=== PATIENT | female | born 1950 | race Caucasian/White ===

== ENCOUNTER 2017-11-16 10:50 | Inpatient (IN) | payer OTHER ==
[~2017-11-16] VITALS: Ht 162.6 cm; Wt 98.5 kg
[2018-01-04] MEDS ORDERED: LOSA50TA3 PO (16:24)
[2018-01-04] MEDS ORDERED: VITA-268 PO (16:24)
[2018-01-04 16:33] LABS: BASOPHILS % (AUTO) 0.5 % (0-1); EOSINOPHILS # (AUTO) 0.1 X10'3 (0-0.9); EOSINOPHILS % (AUTO) 2.1 % (0-6); LYMPHOCYTES # (AUTO) 1.8 X10'3 (1.1-4.8); LYMPHOCYTES % (AUTO) 31.9 % (21-51); MEAN CORPUSCULAR HEMOGLOBIN 30.6 PG (27.0-31.0); MEAN CORPUSCULAR HGB CONC 34.3 % (33.0-36.5); MEAN CORPUSCULAR VOLUME 89.2 FL (78-98); MEAN PLATELET VOLUME 7.2 FL (7.4-10.4); MONOCYTES # (AUTO) 0.4 X10'3 (0-0.9); MONOCYTES % (AUTO) 6.6 % (2-12); NEUTROPHILS # (AUTO) 3.4 X10'3 (1.8-7.7); NEUTROPHILS % (AUTO) 58.9 % (42-75); PRE OP HEMATOCRIT 38.1 % (35.0-45.0); PRE OP HEMOGLOBIN 13.1 g/dL (12.0-16.0); PRE OP PLATELET COUNT 335 X10'3 (140-440); RED BLOOD COUNT 4.27 X10'6 (4.20-5.60); RED CELL DISTRIBUTION WIDTH 13.6 % (11.5-14.5)
[2018-01-04 16:43] LABS: PRE OP INR 0.9 INR; PRE OP PROTIME 9.6 SECONDS (9.0-12.0)
[2018-01-04 16:53] LABS: ALBUMIN 3.8 G/DL (3.4-5.0); ALBUMIN/GLOBULIN RATIO 1.1 (1.1-1.5); ALKALINE PHOSPHATASE 65 IU/L (46-116); BLOOD UREA NITROGEN 16 MG/DL (7-18); BUN/CREATININE RATIO 18.2 (6.6-38.0); CALCIUM 9.9 MG/DL (8.5-10.1); CHLORIDE 106 MMOL/L (99-107); CREATININE 0.88 MG/DL (0.40-0.90); PRE OP ALT 37 U/L (30-65); PRE OP ANION GAP 7 (8-16); PRE OP AST 21 U/L (10-37); PRE OP BILIRUB, TOTAL 0.3 MG/DL (0.0-1.0); PRE OP GLUCOSE 87 MG/DL (70-104); PRE OP POTASSIUM 3.8 MMOL/L (3.4-5.1); PRE OP SODIUM 145 MMOL/L (135-145); TOTAL CARBON DIOXIDE 31.6 MMOL/L (24-32); TOTAL PROTEIN 7.4 G/DL (6.4-8.2); eGFR 64 ML/MIN
[2018-01-08] VITALS (14 sets, daily range): BP systolic 103–165; BP diastolic 55–89
[2018-01-08] MEDS ORDERED: ringers solution, lacted 1,000 ML IV SCH ×2 (05:00→18:02)
[2018-01-08] MEDS ORDERED: tranexamic acid inj. 950 MG in normal saline 100ml IV soln 90.5 ML IV ONE ×2 (05:30→09:30)
[2018-01-08] MEDS ORDERED: VANCOMYCIN INJ 1000 MG in NORMAL SALINE 250ml IV.SOLN IV ONE (05:30)
[2018-01-08] MEDS ORDERED: ceFAZolin inj. 2,000 MG in dextrose 5%-water 100 ML IV ONE (05:30)
[2018-01-08] MEDS ORDERED: scopolamine 1.5mg patch.TD72 TD ONE (05:30)
[2018-01-08] MEDS ORDERED: famotidine 20mg tablet PO ONE (05:30)
[2018-01-08] MEDS ORDERED: acetaminophen 325mg tablet PO PRN (15:35)
[2018-01-08] MEDS ORDERED: acetaminophen 325mg tablet PO ONE (15:40)
[2018-01-08] MEDS ORDERED: ketorolac trometh. 30mg/ml inj. ONE (16:31)
[2018-01-08] MEDS ORDERED: vancomycin 1,000mg inj ONE (16:31)
[2018-01-08] MEDS ORDERED: ROPIVAcaine 0.5% (5mg/ml) 30ml vial ONE ×2 (16:31→16:44)
[2018-01-08] MEDS ORDERED: tetracaine 1% (10mg/ml) pres. free inj. ONE (16:43)
[2018-01-08] MEDS ORDERED: BUPIVAcaine/PF 7.5mg/ml (0.75%) 10ml vial ONE (16:43)
[2018-01-08] MEDS ORDERED: MIDAZolam 5mg/5ml vial ONE (16:47)
[2018-01-08] MEDS ORDERED: propofol inj 20 ML IV ONE ×3 (16:48→17:19)
[2018-01-08] MEDS ORDERED: morphine 4 MG/ML inj SYRINge IV PRN ×2 (18:05)
[2018-01-08] MEDS ORDERED: ondansetron/PF 4mg/2ml inj IV PRN (18:05)
[2018-01-08] MEDS ORDERED: meperidine/PF 25mg/ml syringe IV PRN ×3 (18:05)
[2018-01-08] MEDS ORDERED: proCHLORperazine 10 MG/2 ml inj IV PRN (18:05)
[2018-01-08] MEDS ORDERED: HYDROmorphone 1 mg/ml syringe IV PRN (19:30)
[2018-01-08] MEDS ORDERED: diphenhydrAMINE 25mg capsule PO PRN ×2 (19:30)
[2018-01-08] MEDS ORDERED: oxyCODONE IR 5mg (immed. release) tablet PO PRN ×2 (19:30)
[2018-01-08] MEDS ORDERED: bisacodyl 10mg suppository rectal RC PRN (19:30)
[2018-01-08] MEDS ORDERED: vancomycin/NS 1 GM ADD-VANTAGE 250 ML IV SCH (20:00)
[2018-01-08] MEDS: ondansetron/PF 4mg/2ml inj IV PRN (21:06)
[2018-01-08] MEDS ORDERED: HYDROcodone/acetaminophen 5mg/325mg tablet PO PRN (21:25)
[2018-01-08] MEDS ORDERED: traMADol 50MG tablet PO PRN (21:25)
[2018-01-08] MEDS: gabapentin 300mg capsule PO SCH (21:44)
[2018-01-08] MEDS: sennosides 8.6mg tablet PO SCH (21:45)
[2018-01-08] MEDS: ketorolac tromethamine 15mg/ml inj. IV SCH (21:45)
[2018-01-08] MEDS ORDERED: tranexamic acid inj. 950 MG in normal saline 100ml IV soln 100 ML IV ONE (22:30)
[2018-01-09] MEDS: ceFAZolin 1GM/D5W- ADD-VANTAGE 50 ML IV SCH ×2 (00:15→08:59)
[2018-01-09] MEDS: potassium cl 20mEq in 1/2 NS 1,000 ML IV SCH ×4 (00:15→21:04)
[2018-01-09 00:50] VITALS: BP 100/55
[2018-01-09 02:00] VITALS: BP 102/65
[2018-01-09] MEDS: ketorolac tromethamine 15mg/ml inj. IV SCH ×3 (03:03→16:35)
[2018-01-09] MEDS: ondansetron/PF 4mg/2ml inj IV PRN ×2 (03:03→12:38)
[2018-01-09 05:49] LABS: BASOPHILS % (AUTO) 0.3 % (0-1); EOSINOPHILS # (AUTO) 0.2 X10'3 (0-0.9); EOSINOPHILS % (AUTO) 2.9 % (0-6); HEMATOCRIT 30.3 % (35.0-45.0); HEMOGLOBIN 10.3 g/dl (12.0-16.0); LYMPHOCYTES # (AUTO) 1.5 X10'3 (1.1-4.8); LYMPHOCYTES % (AUTO) 21.3 % (21-51); MEAN CORPUSCULAR HEMOGLOBIN 30.6 PG (27.0-31.0); MEAN PLATELET VOLUME 7.3 FL (7.4-10.4); MONOCYTES # (AUTO) 0.4 X10'3 (0-0.9); MONOCYTES % (AUTO) 5.7 % (2-12); NEUTROPHILS % (AUTO) 69.8 % (42-75); PLATELET COUNT 224 X10'3 (140-440); RED BLOOD COUNT 3.37 X10'6 (4.20-5.60); RED CELL DISTRIBUTION WIDTH 13.3 % (11.5-14.5); WHITE BLOOD COUNT 7.2 X10'3 (4.5-11.0)
[2018-01-09 06:00] VITALS: BP 159/46
[2018-01-09] MEDS ORDERED: vancomycin/NS 1 GM ADD-VANTAGE 250 ML IV ONE (06:00)
[2018-01-09 06:30] LABS: ANION GAP 6 (8-16); CHLORIDE 108 MMOL/L (99-107); POTASSIUM 4.8 MMOL/L (3.5-5.1); SODIUM 141 MMOL/L (135-145); TOTAL CARBON DIOXIDE 27.2 MMOL/L (24-32)
[2018-01-09] MEDS: metoclopramide 5 mg/ml inj IV PRN ×2 (09:05→15:46)
[2018-01-09] MEDS: gabapentin 300mg capsule PO SCH ×3 (09:05→20:35)
[2018-01-09] MEDS: aspirin 325mg tablet PO SCH (09:05)
[2018-01-09] MEDS: losartan 50mg tablet PO SCH (09:06)
[2018-01-09] MEDS: traMADol 50MG tablet PO PRN ×4 (09:06→22:28)
[2018-01-09 10:00] VITALS: BP 123/58
[2018-01-09] MEDS ORDERED: ASPI-1 PO (13:56)
[2018-01-09] MEDS: HYDROmorphone 1 mg/ml syringe IV PRN (15:46)
[2018-01-09] MEDS ORDERED: ceFAZolin 1GM/D5W- ADD-VANTAGE 50 ML IV ONE (17:00)
[2018-01-09 18:00] VITALS: BP 115/49
[2018-01-09] MEDS: sennosides 8.6mg tablet PO SCH (20:35)
[2018-01-09] MEDS: celeCOXIB 100mg capsule PO SCH (20:35)
[2018-01-09 22:00] VITALS: BP 114/62
[2018-01-09] MEDS: cyclobenzaprine 10mg tablet PO PRN (23:23)
[2018-01-10] MEDS: HYDROmorphone 1 mg/ml syringe IV PRN (00:36)
[2018-01-10] MEDS: ondansetron/PF 4mg/2ml inj IV PRN ×2 (00:36→09:56)
[2018-01-10] MEDS: potassium cl 20mEq in 1/2 NS 1,000 ML IV SCH ×2 (03:26→17:24)
[2018-01-10 05:51] LABS: BASOPHILS % (AUTO) 0.1 % (0-1); EOSINOPHILS # (AUTO) 0.2 X10'3 (0-0.9); EOSINOPHILS % (AUTO) 2.9 % (0-6); HEMATOCRIT 27.9 % (35.0-45.0); HEMOGLOBIN 9.5 g/dl (12.0-16.0); LYMPHOCYTES # (AUTO) 1.5 X10'3 (1.1-4.8); LYMPHOCYTES % (AUTO) 25.8 % (21-51); MEAN CORPUSCULAR HEMOGLOBIN 30.8 PG (27.0-31.0); MEAN CORPUSCULAR HGB CONC 34.1 % (33.0-36.5); MEAN CORPUSCULAR VOLUME 90.3 FL (78-98); MEAN PLATELET VOLUME 7.2 FL (7.4-10.4); MONOCYTES # (AUTO) 0.3 X10'3 (0-0.9); MONOCYTES % (AUTO) 5.8 % (2-12); NEUTROPHILS # (AUTO) 3.9 X10'3 (1.8-7.7); NEUTROPHILS % (AUTO) 65.4 % (42-75); PLATELET COUNT 210 X10'3 (140-440); RED BLOOD COUNT 3.09 X10'6 (4.20-5.60); RED CELL DISTRIBUTION WIDTH 13.3 % (11.5-14.5)
[2018-01-10] MEDS: traMADol 50MG tablet PO PRN (05:51)
[2018-01-10 06:00] VITALS: BP 118/65
[2018-01-10] MEDS: celeCOXIB 100mg capsule PO SCH ×2 (09:52→19:51)
[2018-01-10] MEDS: losartan 50mg tablet PO SCH (09:52)
[2018-01-10] MEDS: cyclobenzaprine 10mg tablet PO PRN (09:53)
[2018-01-10] MEDS: gabapentin 300mg capsule PO SCH ×3 (09:53→19:51)
[2018-01-10] MEDS: aspirin 325mg tablet PO SCH (09:53)
[2018-01-10] MEDS: HYDROcodone/acetaminophen 10/325mg tab PO PRN ×3 (09:53→19:51)
[2018-01-10 10:00] VITALS: BP 139/63
[2018-01-10] MEDS ORDERED: potassium Cl 20 mEq SR tablet PO PRN (15:50)
[2018-01-10] MEDS ORDERED: potassium Cl 40MEQ/NS 500ml 500 ML IV PRN ×2 (15:50)
[2018-01-10 18:00] VITALS: BP 168/52
[2018-01-10] MEDS: sennosides 8.6mg tablet PO SCH (19:51)
[2018-01-10 22:00] VITALS: BP 116/46
[2018-01-11] MEDS: HYDROcodone/acetaminophen 10/325mg tab PO PRN ×5 (03:57→20:51)
[2018-01-11 05:47] LABS: BASOPHILS % (AUTO) 0.3 % (0-1); EOSINOPHILS # (AUTO) 0.3 X10'3 (0-0.9); EOSINOPHILS % (AUTO) 5.9 % (0-6); HEMOGLOBIN 9.9 g/dl (12.0-16.0); LYMPHOCYTES # (AUTO) 1.2 X10'3 (1.1-4.8); MEAN CORPUSCULAR HEMOGLOBIN 30.6 PG (27.0-31.0); MEAN CORPUSCULAR VOLUME 90.2 FL (78-98); MEAN PLATELET VOLUME 7.6 FL (7.4-10.4); MONOCYTES # (AUTO) 0.4 X10'3 (0-0.9); MONOCYTES % (AUTO) 8.3 % (2-12); NEUTROPHILS % (AUTO) 61.5 % (42-75); PLATELET COUNT 213 X10'3 (140-440); RED BLOOD COUNT 3.22 X10'6 (4.20-5.60); RED CELL DISTRIBUTION WIDTH 13.3 % (11.5-14.5); WHITE BLOOD COUNT 4.8 X10'3 (4.5-11.0)
[2018-01-11 06:00] VITALS: BP 144/60
[2018-01-11] MEDS: celeCOXIB 100mg capsule PO SCH ×2 (08:48→20:49)
[2018-01-11] MEDS: losartan 50mg tablet PO SCH (08:48)
[2018-01-11] MEDS: gabapentin 300mg capsule PO SCH ×3 (08:48→20:49)
[2018-01-11] MEDS: aspirin 325mg tablet PO SCH (08:48)
[2018-01-11] MEDS ORDERED: WALKERFR (09:10)
[2018-01-11 10:00] VITALS: BP 160/69
[2018-01-11] MEDS: magnesium hydroxide 30ml (MOM) UD suspension PO PRN (16:52)
[2018-01-11 18:00] VITALS: BP 149/73
[2018-01-11] MEDS: sennosides 8.6mg tablet PO SCH (20:50)
[2018-01-11 22:00] VITALS: BP 147/78
[2018-01-12] MEDS: HYDROcodone/acetaminophen 10/325mg tab PO PRN ×2 (05:42→11:26)
[2018-01-12 06:00] VITALS: BP 152/65
[2018-01-12] MEDS: magnesium hydroxide 30ml (MOM) UD suspension PO PRN (06:38)
[2018-01-12] MEDS: celeCOXIB 100mg capsule PO SCH (09:53)
[2018-01-12] MEDS: aspirin 325mg tablet PO SCH (09:53)
[2018-01-12] MEDS: gabapentin 300mg capsule PO SCH (09:53)
[2018-01-12] MEDS: losartan 50mg tablet PO SCH (09:53)
== END 2018-01-12 11:20 | disposition home or self-care (01) | DRG 470 ==
LOC: PAS IN 01-08 09:05 → EDSTATUS 01-08 11:30 → ORTHO 4S 01-08 20:56
PROVIDERS: ADMIT Orthopaedic Surgery; ATTEND Orthopaedic Surgery
PROC: 3E0T3BZ Introduction of Anesthetic Agent into Peripheral Nerves and Plexi, Percutaneous Approach (ICD-10-PCS; 2018-01-08)
PROC: 8E0YXBZ Computer Assisted Procedure of Lower Extremity (ICD-10-PCS; 2018-01-08)
PROC: 8E0Y0CZ Robotic Assisted Procedure of Lower Extremity, Open Approach (ICD-10-PCS; 2018-01-08)
PROC: 0SRD0J9 Replacement of Left Knee Joint with Synthetic Substitute, Cemented, Open Approach (ICD-10-PCS; principal; 2018-01-08 16:53)
DX: M17.12 Unilateral primary osteoarthritis, left knee (principal); D62 Acute posthemorrhagic anemia; J44.9 Chronic obstructive pulmonary disease, unspecified; I10 Essential (primary) hypertension; Z79.82 Long term (current) use of aspirin; Z79.899 Other long term (current) drug therapy; Z88.8 Allergy status to other drugs, medicaments and biological substances; Z88.5 Allergy status to narcotic agent; Z91.040 Latex allergy status; Z87.891 Personal history of nicotine dependence
CPT/HCPCS: 36415; 80051; 80053; 85025; 85610; 85730; 87070; 97110; 97116; 97162; 97530; A6455; A7000; C1713; C1758; C1776; J0690; J1170; J1885; J2175; J2250; J2405; J2704; J2765; J2795; J3370; J3490; J7030; J7060; J7120

== ENCOUNTER 2018-09-07 10:36 | Inpatient (IN) | payer OTHER ==
[2018-09-07] VITALS (18 sets, daily range): BP systolic 111–185; BP diastolic 48–106
[~2018-09-07] VITALS: Ht 165.1 cm; Wt 85.0 kg
[~2018-09-07 10:36] MED LIST: AMLO5TAB PO; ASPI-1 PO; MAGN400T29 PO; VANCOMYCIN INJ 1000 MG in NORMAL SALINE 250ml IV.SOLN IV ONE; VITA-268 PO; cefazolin/dext.iso 2gm/50ml 50 ML IV ONE; famotidine 20mg tablet PO ONE; ringers solution, lacted 1,000 ML IV SCH; scopolamine 1.5mg patch.TD72 TD ONE; tranexamic acid inj. 950 MG in normal saline 100ml IV soln 100 ML IV ONE
[2018-09-07] MEDS ORDERED: ketorolac trometh. 30mg/ml inj. ONE (11:51)
[2018-09-07] MEDS ORDERED: ROPIVAcaine 0.5% (5mg/ml) 30ml vial ONE ×3 (11:57→15:26)
[2018-09-07] MEDS ORDERED: tetracaine 1% (10mg/ml) pres. free inj. ONE (12:32)
[2018-09-07] MEDS ORDERED: MIDAZolam 1mg/ml 10ml vial ONE (12:35)
[2018-09-07] MEDS ORDERED: fentaNYL/PF 50MCG/1 ML 2ML syringe ONE (12:36)
[2018-09-07] MEDS ORDERED: propofol inj 20 ML IV ONE (13:17)
[2018-09-07] MEDS ORDERED: ringers solution, lacted 1,000 ML IV SCH (14:29)
[2018-09-07] MEDS ORDERED: ondansetron/PF 4mg/2ml inj IV PRN (14:30)
[2018-09-07] MEDS ORDERED: meperidine/PF 25mg/ml syringe IV PRN ×3 (14:30)
[2018-09-07] MEDS ORDERED: proCHLORperazine 10 MG/2 ml inj IV PRN (14:30)
[2018-09-07] MEDS ORDERED: morphine 4 MG/ML inj SYRINge IV PRN ×2 (14:30)
[2018-09-07 14:38] LABS: APPEARANCE,SYNOVIAL FLUID CLOUDY; COLOR,SYNOVIAL FLUID OTHER; SYN RBC 5100 /CU MM (0); SYN WBC 20 /CU MM (0-200)
--- NOTE | 2018-09-07 16:20 | NUR ---
Received from OR via bed, accompanied by Anesthesiologist. Report received. Initial physical assessment done and recorded.
--- NOTE | 2018-09-07 17:15 | NUR ---
Received bedside report from Suni AMOR.
--- NOTE | 2018-09-07 17:20 | NUR ---
Discharge criteria met, report to receiving floor. Transferred to room in stable condition.
[2018-09-07] MEDS: ROPIVAcaine 0.2%/PF PAIN PUMP 550 ML IJ SCH (17:21)
--- NOTE | 2018-09-07 18:34 | NUR ---
Report to Dulce AMOR
--- NOTE | 2018-09-07 21:35 | NUR ---
pt with continued increasing pain. ON-Q pump is increased x3 to 10mg/hr at this time. pt is c/o increased pain. call to md for pain medication. new orders for tylenol, toradol and ms. orders placed.
[2018-09-07] MEDS ORDERED: morphine 10mg/ml inj. IV PRN (21:40)
[2018-09-07] MEDS ORDERED: ketorolac trometh. 30mg/ml inj. IM ONE (22:15)
[2018-09-07] MEDS: acetaminophen 325mg tablet PO PRN (22:37)
[2018-09-07] MEDS ORDERED: ketorolac trometh. 30mg/ml inj. IV ONE (22:45)
--- NOTE | 2018-09-07 22:49 | NUR ---
MS 5mg IV given for 04/28 pain. pt had immediate reaction of nausea and vomiting. pt given Tylenol with no n/v. one time dose of toradol iv. will continue to monitor.
[2018-09-07] MEDS ORDERED: scopolamine 1.5mg patch.TD72 TD ONE (23:05)
[2018-09-08 02:00] VITALS: BP 134/44
[2018-09-08] MEDS: ketorolac trometh. 30mg/ml inj. IV SCH ×2 (02:44→08:05)
--- NOTE | 2018-09-08 03:39 | NUR ---
pt is painful but refusing pain medications, except tylenol and toradol. have continued with ONQue pump and Powder Packs, elevation and continue to monitor.
--- NOTE | 2018-09-08 03:55 | NUR ---
Scopalomine transdermal patch not found behind either ear or on either side neck or in hair. new patch applied behind left ear. Charge nurse also searched for patch and did not find.
[2018-09-08] MEDS: acetaminophen 325mg tablet PO PRN (05:29)
[2018-09-08 06:00] VITALS: BP 136/50
--- NOTE | 2018-09-08 06:30 | NUR ---
Patient in room [facility]TH[facility] 4023. I have received report from Dulce AMOR and had the opportunity to ask questions and assume patient care.
--- NOTE | 2018-09-08 06:33 | NUR ---
REPORT GIVEN TO ZULEYMA SURESH.
[2018-09-08] MEDS: aspirin 325mg tablet PO SCH (08:05)
[2018-09-08] MEDS ORDERED: amLODIPine 5mg tablet PO ONE (08:35)
[2018-09-08 09:17] LABS: ALBUMIN 2.9 G/DL (3.4-5.0); ANION GAP 10 (8-16); BASOPHILS % (AUTO) 0.3 % (0-1); BLOOD UREA NITROGEN 13 MG/DL (7-18); BUN/CREATININE RATIO 16.9 (6.6-38.0); CALCIUM 8.8 MG/DL (8.5-10.1); CHLORIDE 105 MMOL/L (99-107); CREATININE 0.77 MG/DL (0.40-0.90); EOSINOPHILS # (AUTO) 0.2 X10'3 (0-0.9); EOSINOPHILS % (AUTO) 3.7 % (0-6); GLUCOSE 143 MG/DL (70-104); HEMATOCRIT 31.7 % (35.0-45.0); HEMOGLOBIN 10.4 g/dl (12.0-16.0); LYMPHOCYTES # (AUTO) 0.8 X10'3 (1.1-4.8); LYMPHOCYTES % (AUTO) 14.2 % (21-51); MEAN CORPUSCULAR HEMOGLOBIN 29.5 PG (27.0-31.0); MEAN CORPUSCULAR HGB CONC 32.8 g/dL (33.0-36.5); MEAN CORPUSCULAR VOLUME 89.7 FL (78-98); MEAN PLATELET VOLUME 7.3 FL (7.4-10.4); MONOCYTES # (AUTO) 0.2 X10'3 (0-0.9); MONOCYTES % (AUTO) 4.1 % (2-12); NEUTROPHILS # (AUTO) 4.7 X10'3 (1.8-7.7); NEUTROPHILS % (AUTO) 77.7 % (42-75); PLATELET COUNT 222 X10'3 (140-440); POTASSIUM 3.5 MMOL/L (3.5-5.1); RED BLOOD COUNT 3.54 X10'6 (4.20-5.60); RED CELL DISTRIBUTION WIDTH 13.2 % (11.5-14.5); SODIUM 141 MMOL/L (135-145); TOTAL CARBON DIOXIDE 26.2 MMOL/L (24-32); eGFR 74 ML/MIN
[2018-09-08 10:00] VITALS: BP 138/59
[2018-09-08] MEDS: ondansetron/PF 4mg/2ml inj IV PRN ×2 (10:49→20:40)
--- NOTE | 2018-09-08 12:30 | NUR ---
Pt was having complaints of nausea, pt was also enjoying a venti [employer] and filled vegetable crepes from a take restaurant, brought in by friends, spoke with ortho PERSONAL DRIVER. Pt had already been given Zofran. No new orders given.
[2018-09-08] MEDS: traMADol 50MG tablet PO PRN ×2 (12:44→20:36)
[2018-09-08 14:00] VITALS: BP 145/65
[2018-09-08] MEDS: ketorolac tromethamine 15mg/ml inj. IV SCH ×2 (14:00→20:29)
[2018-09-08] MEDS ORDERED: ketorolac trometh. 30mg/ml inj. IV SCH (14:00)
--- NOTE | 2018-09-08 14:34 | NUR ---
Pt ate food brought in by family/friends Addendum: 09/08/18 at 1434 by Mikaela Bryant RN Amended: Links added.
--- NOTE | 2018-09-08 17:04 | NUR ---
Pt s/p surgery to left knee. Pt seen at bedside given written and verbal protein education with RD contact information. Pt on regular diet with documented PO intake 0% at lunch this afternoon however pt states her daughter brought her outside food. Pt likely meeting nutrient needs. Will continue to follow. Addendum: 09/08/18 at [address] Amended: Links added.
[2018-09-08 18:00] VITALS: BP 142/64
--- NOTE | 2018-09-08 18:23 | NUR ---
Problems reprioritized. Patient report given, questions answered & plan of care reviewed with Jacque Werner RN.
--- NOTE | 2018-09-08 18:31 | NUR ---
PATIENT REPORT RECEIVED FROM KERWIN AMOR.
[2018-09-08 22:00] VITALS: BP 128/32
[2018-09-09] MEDS: ketorolac tromethamine 15mg/ml inj. IV SCH ×3 (02:11→14:00)
[2018-09-09] MEDS: traMADol 50MG tablet PO PRN ×2 (02:26→16:17)
[2018-09-09] MEDS: ondansetron/PF 4mg/2ml inj IV PRN ×2 (02:41→08:19)
[2018-09-09 06:00] VITALS: BP 124/61
--- NOTE | 2018-09-09 06:24 | NUR ---
INCREASED ONQ PUMP TO 14MLS.
--- NOTE | 2018-09-09 06:34 | NUR ---
PATIENT REPORT GIVEN TO CHERIE AMOR.
--- NOTE | 2018-09-09 06:54 | NUR ---
Patient in room [facility]TH[facility] 4023. I have received report from Jacque AMOR and had the opportunity to ask questions and assume patient care.
[2018-09-09 07:00] LABS: BASOPHILS % (AUTO) 0.3 % (0-1); EOSINOPHILS # (AUTO) 0.3 X10'3 (0-0.9); EOSINOPHILS % (AUTO) 5.6 % (0-6); HEMATOCRIT 28.3 % (35.0-45.0); HEMOGLOBIN 9.8 g/dl (12.0-16.0); LYMPHOCYTES # (AUTO) 1.2 X10'3 (1.1-4.8); LYMPHOCYTES % (AUTO) 20.4 % (21-51); MEAN CORPUSCULAR HEMOGLOBIN 30.7 PG (27.0-31.0); MEAN CORPUSCULAR HGB CONC 34.6 g/dL (33.0-36.5); MEAN CORPUSCULAR VOLUME 88.8 FL (78-98); MEAN PLATELET VOLUME 7.5 FL (7.4-10.4); MONOCYTES # (AUTO) 0.4 X10'3 (0-0.9); MONOCYTES % (AUTO) 7.9 % (2-12); NEUTROPHILS # (AUTO) 3.7 X10'3 (1.8-7.7); NEUTROPHILS % (AUTO) 65.8 % (42-75); PLATELET COUNT 212 X10'3 (140-440); RED BLOOD COUNT 3.18 X10'6 (4.20-5.60); RED CELL DISTRIBUTION WIDTH 13.4 % (11.5-14.5); WHITE BLOOD COUNT 5.6 X10'3 (4.5-11.0)
[2018-09-09 07:04] LABS: ALBUMIN 2.7 G/DL (3.4-5.0); ANION GAP 9 (8-16); BLOOD UREA NITROGEN 12 MG/DL (7-18); CHLORIDE 105 MMOL/L (99-107); GLUCOSE 97 MG/DL (70-104); POTASSIUM 3.8 MMOL/L (3.5-5.1); SODIUM 140 MMOL/L (135-145); TOTAL CARBON DIOXIDE 26.3 MMOL/L (24-32); eGFR > 90 ML/MIN
[2018-09-09] MEDS ORDERED: vitamin B comp w/Vit. C tab 1 TAB TABLET PO SCH (08:00)
[2018-09-09] MEDS ORDERED: amLODIPine 5mg tablet PO SCH (08:00)
[2018-09-09] MEDS ORDERED: magnesium oxide 400mg tablet PO SCH (08:00)
[2018-09-09] MEDS: aspirin 325mg tablet PO SCH (08:21)
[2018-09-09 10:11] VITALS: BP 122/59
[2018-09-09] MEDS: ROPIVAcaine 0.2%/PF PAIN PUMP 550 ML IJ SCH (14:29)
--- NOTE | 2018-09-09 15:07 | NUR ---
Left message with Dr. Garcia to see if dicharge orders can be put in for patient, per patient request
[2018-09-09] MEDS ORDERED: ROPIVAcaine 0.2%/PF PAIN PUMP 400 ML IJ SCH (15:20)
[2018-09-09] MEDS ORDERED: TRAM50TA2 PO (16:47)
[2018-09-09] MEDS ORDERED: ASPI-10 PO (16:50)
--- NOTE | 2018-09-09 17:01 | NUR ---
Student Medication Administration: For this medication-pass time frame, all medication were reviewed, dispensed, administered and documented per hospital policy by Joann Alexandre
--- NOTE | 2018-09-09 17:22 | NUR ---
Patient discharged with all belongings including a front wheel walker, all discharge instructions went over with patient and family member, patti and on-Q pump instructions went over with patient and handouts given to patient.
--- NOTE | 2018-09-09 18:02 | NUR ---
New rx for Tramadol call into [facility] pharmacy in [place]
== END 2018-09-09 17:15 | disposition home or self-care (01) | DRG 467 ==
LOC: PAS IN 10:36 → EDSTATUS 13:30 → ORTHO 4S 17:17
PROVIDERS: ADMIT Orthopaedic Surgery; ATTEND Orthopaedic Surgery
PROC: 0SRW0J9 Replacement of Left Knee Joint, Tibial Surface with Synthetic Substitute, Cemented, Open Approach (ICD-10-PCS; 2018-09-07)
PROC: 3E0T3BZ Introduction of Anesthetic Agent into Peripheral Nerves and Plexi, Percutaneous Approach (ICD-10-PCS; 2018-09-07)
PROC: 0SPW0JZ Removal of Synthetic Substitute from Left Knee Joint, Tibial Surface, Open Approach (ICD-10-PCS; principal; 2018-09-07 12:41)
DX: T84.033A Mechanical loosening of internal left knee prosthetic joint, initial encounter (principal); D62 Acute posthemorrhagic anemia; Z96.652 Presence of left artificial knee joint; M17.12 Unilateral primary osteoarthritis, left knee; Y79.2 Prosthetic and other implants, materials and accessory orthopedic devices associated with adverse incidents; Z88.2 Allergy status to sulfonamides; Z87.891 Personal history of nicotine dependence; I10 Essential (primary) hypertension
CPT/HCPCS: 36415; 80048; 82948; 85025; 87070; 87075; 89051; 93005; 97110; 97116; 97162; 97530; A6455; A7000; A9272; C1713; C1758; C1776; G0378; J0690; J1885; J2250; J2270; J2405; J2704; J2795; J3010; J3370; J7030; J7120; L1832